=== PATIENT | male | born 1975 | race African-American/Black ===

== ENCOUNTER 2018-02-06 22:48 | Emergency (ER) | payer OTHER ==
[2018-02-06 22:58] VITALS: BP 135/108; PULSE 104; TEMP 98.2; BMI 34.8
--- NOTE | 2018-02-06 23:57 | PDOC ---
History of Present Illness - General History Source: Patient Exam Limitations: No Limitations - History of Present Illness Initial Comments: 02/07/18 00:45 The patient is a 42 year old male with a significant PMH of HTN who presents to the emergency department with lower abdominal pain with associated diarrhea for the past two days. The patient describes the lower abdominal pain as sharp and intermittent. The patient denies exacerbating or alleviating factors. The patient denies having similar symptoms in the past. Patient state he has not had a cholecystoscopy or followed with a cottage attendant in the past. The patient denies chest pain, shortness of breath, headache and dizziness. Denies diaphoresis, fever, chills, nausea, vomit, diarrhea and constipation. Denies dysuria, frequency, urgency and hematuria. Allergies: NKA Past surgical history: None reported. Social history: No reported alcohol, drug, or cigarette use. PCP: Dr. Vigil <Marie Clement - Last Filed: 02/07/18 00:56> <Lurdes Simpson - Last Filed: 02/13/18 02:04> - General Chief Complaint: Pain Stated Complaint: ABDOMINAL PAIN Time Seen by Provider: 02/06/18 23:41 Past History <Marie Clement - Last Filed: 02/07/18 00:56> - Past Medical History COPD: No HTN: Yes - Surgical History Neurologic Surgery: Yes (S5-L2 DISK HERNIATION REPAIR) - Suicide/Smoking/Psychosocial Hx Smoking Status: No Smoking History: Never smoked Have you smoked in the past 12 months: No Number of Cigarettes Smoked Daily: 0 Information on smoking cessation initiated: No Hx Alcohol Use: Yes (social) Drug/Substance Use Hx: Yes Substance Use Type: Alcohol, Marijuana <Lurdes Simpson - Last Filed: 02/13/18 02:04> - Past Medical History Allergies/Adverse Reactions: Allergies Allergy/AdvReac Type Severity Reaction Status Date / Time No Known Allergies Allergy Verified 02/06/18 22:58 Home Medications: Ambulatory Orders Allopurinol [Zyloprim -] 100 mg PO DAILY 11/05/15 Amlodipine Besylate 5 mg PO DAILY 11/05/15 Colchicine [Colcrys -] 0.6 mg PO DAILY 11/05/15 Gabapentin 100 mg PO DAILY 11/05/15 Indomethacin 50 mg PO DAILY 11/05/15 Losartan Potassium 100 mg PO DAILY 11/05/15 Omeprazole 20 mg PO DAILY 11/05/15 Tramadol HCl 50 mg PO DAILY PRN 11/05/15 Acetaminophen [Tylenol .Regular Strength -] 650 mg PO Q6H PRN #0 tablet Albuterol Sulfate Inhaler - [Ventolin HFA Inhaler -] 1 - 2 inh PO Q4H #1 inhaler 11/06/15 Loratadine [Claritin -] 10 mg PO DAILY #30 tablet 11/06/15 Losartan Potassium [Cozaar -] 100 mg PO DAILY tablet 11/06/15 Ibuprofen 800 mg PO TID #30 tablet 02/07/18 levoFLOXacin [Levaquin -] 500 mg PO DAILY #7 tablet 02/07/18 metroNIDAZOLE [Flagyl] 500 mg PO BID #14 tablet 02/07/18 Review of Systems - Review of Systems Able to Perform ROS?: Yes Comments:: 02/07/18 00:42 ADULT ROS GENERAL/CONSTITUTIONAL: No fever or chills. No weakness. HEAD, EYES, EARS, NOSE AND THROAT: No change in vision. No ear pain or discharge. No sore throat. GASTROINTESTINAL: (+) Lower abdomen pain. No nausea, vomiting, diarrhea or constipation. GENITOURINARY: No dysuria, frequency, or change in urination. CARDIOVASCULAR: No chest pain or shortness of breath. RESPIRATORY: No cough, wheezing, or hemoptysis. MUSCULOSKELETAL: No joint or muscle swelling or pain. No neck or back pain. SKIN: No rash NEUROLOGIC: No headache, vertigo, loss of consciousness, or change in strength/ sensation. ENDOCRINE: No increased thirst. No abnormal weight change. HEMATOLOGIC/LYMPHATIC: No anemia, easy bleeding, or history of blood clots. ALLERGIC/IMMUNOLOGIC: No hives or skin allergy. <Marie Clement - Last Filed: 02/07/18 00:56> *Physical Exam - Vital Signs Last Vital Signs Temp Pulse Resp BP Pulse Ox 98.2 F 104 H 18 135/108 100 02/06/18 22:55 02/06/18 22:55 02/06/18 22:55 02/06/18 22:55 02/06/18 22:55 - Physical Exam Comments: 02/07/18 00:41 ADULT PHYSICAL EXAM Constitutional: Awake, alert, oriented. No acute distress. Head: Normocephalic. Atraumatic Eyes: PERRL. EOMI. Conjunctivae are not pale. ENT: Mucous membranes are moist and intact. Posterior pharynx without exudates or erythema. Uvula midline. Neck: Supple. Full ROM. No lymphadenopathy. Cardiovascular: Regular rate. Regular rhythm. S1, S2 regular. Distal pulses are 2+ and symmetric. Pulmonary/Chest: No evidence of respiratory distress. Clear to auscultation bilaterally No wheezing, rales or rhonchi. Abdominal: (+) Obese abdomen. (+) Lower abdomen tenderness. Soft and non- distended. No rebound, guarding or rigidity. No organomegaly. No palpable masses. Good bowel sounds. Back: No CVA tenderness. Musculoskeletal: No edema. No cyanosis. No clubbing. Full range of motion in all extremities. Nocalf tenderness. Radial/pedal pulses are intact and 2+ bilaterally Skin: Skin is warm and dry. No petechiae. No purpura. Neurological: Alert and oriented to person, place, and time. Cranial nerves II -XII are grossly intact. Normal speech. Strength is grossly symmetric. No sensory deficits. Psychiatric: Good eye contact. Normal interaction, affect and behavior. <Marie Clement - Last Filed: 02/07/18 00:56> - Vital Signs Last Vital Signs Temp Pulse Resp BP Pulse Ox 98.2 F 104 H 18 135/108 100 02/06/18 22:55 02/06/18 22:55 02/06/18 22:55 02/06/18 22:55 02/06/18 22:55 <Lurdes Simpson - Last Filed: 02/13/18 02:04> ED Treatment Course - LABORATORY CBC & Chemistry Diagram: 02/07/18 00:17 02/07/18 00:17 - Medications Given in the ED: ED Medications Discontinued Medications Generic Name Dose Route Start Last Admin Trade Name Freq PRN Reason Stop Dose Admin Famotidine/Sodium Chloride 20 mg in 50 mls @ 100 mls/hr 02/06/18 23:59 00:23 Pepcid 20 Mg Premixed Ivpb - IVPB 02/07/18 00:28 100 mls/hr ONCE ONE Administration Morphine Sulfate 4 mg 02/06/18 23:59 02/07/18 00:23 Morphine Injection - IVPUSH 02/07/18 00:00 4 mg ONCE ONE Administration Sodium Chloride 1,000 ml 02/06/18 23:59 02/07/18 00:23 Normal Saline - IV 02/07/18 00:00 1,000 ml ONCE ONE Administration <Marie Clement - Last Filed: 02/07/18 00:56> - LABORATORY CBC & Chemistry Diagram: 02/07/18 00:17 02/07/18 00:17 <Lurdes Simpson - Last Filed: 02/13/18 02:04> Medical Decision Making - Medical Decision Making 02/07/18 00:27 a/p: 42yo male with lower abd pain x 2 days assoc with diarrhea -states sharp shooting intermittent pain x 2 days - LLQ worse than RLQ -assoc with nonbloody diarrhea, but small freq bm -subjective f/c -no n/v -suspect diverticulitis -will check labs, ua, ct abd/pelvis w contrast -ivf hdyration -pain control 02/07/18 01:53 pt with thrombocytopenia on labs L shift in neutrophils tolerated po still with pain - will remedicate for pain 02/07/18 02:[address] pt will be signed out to the oncoming ED physician pending further eval of abd pain <Lurdes Simpson - Last Filed: 02/13/18 02:04> *DC/Admit/Observation/Transfer - Attestations Scribe Attestion: 02/07/18 00:43 Documentation prepared by Marie Clement, acting as medical researcher for Lurdes Simpson DO. <Marie Clement - Last Filed: 02/07/18 00:56> - Attestations Physician Attestion: 02/13/18 02:04 I, Dr. Lurdes Simpson DO, attest that this document has been prepared under my direction and personally reviewed by me in its entirety. I further attest, that it accurately reflects all work, treatment, procedures and medical decision -making performed by me. <Lurdes Simpson - Last Filed: 02/13/18 02:04> Diagnosis at time of Disposition: Colitis Abdominal pain Qualifiers: Abdominal location: generalized Qualified Code(s): R10.84 - Generalized abdominal pain - Discharge Dispostion Disposition: HOME Condition at time of disposition: Stable - Prescriptions Prescriptions: Ibuprofen 800 mg PO TID #30 tablet levoFLOXacin [Levaquin -] 500 mg PO DAILY #7 tablet metroNIDAZOLE [Flagyl] 500 mg PO BID #14 tablet - Referrals Referrals: Hira Pike MD [Staff Physician] - Harshal Vigil MD [Primary Care Provider] - - Patient Instructions Printed Discharge Instructions: DI for Colitis - Post Discharge Activity
[2018-02-06] MEDS ORDERED: FAMOTIDINE 20 MG/50 ML IVPB 20 MG/50 ML MG IVPB ONE (23:59)
[2018-02-06] MEDS ORDERED: SODIUM CHLORIDE 0.9% 1000 ML INFUS.BAG IV ONE (23:59)
[2018-02-06] MEDS ORDERED: morphine CARPU-JECT 4 MG/1 ML DISP.SYRIN IVPUSH ONE (23:59)
[2018-02-07] MEDS ORDERED: morphine SULFATE 4 MG/ML VIAL ONE (00:25)
[2018-02-07] MEDS ORDERED: FAMOTIDINE 20 MG/50 ML IVPB 20 MG/50 ML MG IVPB ONE (00:25)
[2018-02-07 00:46] LABS: BASO % 0.1 % (0-2.0); EOS % 0.1 % (0-4.5); HEMATOCRIT 46.3 % (35.4-49); HEMOGLOBIN 15.5 GM/dL (11.7-16.9); LYMPH % 4.2 % (8-40); MCH 31.9 pg (25.7-33.7); MCHC 33.6 g/dl (32.0-35.9); MEAN PLT VOLUME 9.6 fl (7.5-11.1); NEUT % 90.6 % (42.8-82.8); PLATELET COUNT 42 K/MM3 (134-434); RBC 4.88 M/mm3 (4.00-5.60); RDW 14.8 % (11.9-15.9); WHITE BLOOD COUNT 5.4 K/mm3 (4.0-10.0)
[2018-02-07 01:22] LABS: ALBUMIN 3.1 g/dl (3.4-5.0); ANION GAP 9 (8-16); BLOOD UREA NITROGEN 11 mg/dL (7-18); CALCIUM 8.2 mg/dL (8.5-10.1); CHLORIDE 104 mmol/L (98-107); CO2 25 mmol/L (21-32); CREATININE 1.3 mg/dL (0.7-1.3); GLUCOSE,RANDOM 119 mg/dL (74-106); SGPT/ALT 40 U/L (12-78); SODIUM 138 mmol/L (136-145)
[2018-02-07 01:24] LABS: ALK PHOS 122 U/L (45-117); BILIRUBIN,TOTAL 0.7 mg/dL (0.2-1.0); TOT PROT 7.7 g/dl (6.4-8.2)
[2018-02-07 01:25] LABS: POTASSIUM 3.6 mmol/L (3.5-5.1); SGOT/AST 54 U/L (15-37)
[2018-02-07] MEDS ORDERED: morphine CARPU-JECT 4 MG/1 ML DISP.SYRIN IVPUSH ONE (01:52)
[2018-02-07] MEDS ORDERED: SODIUM CHLORIDE 0.9% 1000 ML INFUS.BAG IV ONE (01:53)
[2018-02-07 02:18] LABS: URINE APPEARANCE CLEAR; URINE BILIRUBIN NEGATIVE (<2.0 mg/dL); URINE COLOR STRAW; URINE GLUCOSE (UA) NEGATIVE (NEGATIVE); URINE KETONE NEGATIVE (NEGATIVE); URINE LEUK ESTERASE NEGATIVE (NEGATIVE); URINE NITRITE NEGATIVE (NEGATIVE); URINE UROBILINOGEN NEGATIVE mg/dL (0.2-1.0)
[2018-02-07 02:23] LABS: URINE PROTEIN 2+ (NEGATIVE)
[2018-02-07 02:29] LABS: EPI CELLS RARE /HPF (FEW); URINE BACTERIA RARE /hpf (NONE SEEN); URINE MUCUS RARE
[2018-02-07] MEDS ORDERED: MORPHINE SULFATE 2 MG/ML VIAL ONE (02:36)
[2018-02-07 02:44] LABS: PLATELET ESTIMATE DECREASED
[2018-02-07] MEDS ORDERED: metroNIDAZOLE 250 MG TABLET PO ONE (05:07)
--- NOTE | 2018-02-07 05:11 | PDOC ---
*Physical Exam - Vital Signs Last Vital Signs Temp Pulse Resp BP Pulse Ox 98.2 F 104 H 18 135/108 100 02/06/18 22:55 02/06/18 22:55 02/06/18 22:55 02/06/18 22:55 02/06/18 22:55 ED Treatment Course - LABORATORY CBC & Chemistry Diagram: 02/07/18 00:17 02/07/18 00:17 - ADDITIONAL ORDERS Additional order review: Laboratory Results 02/07/18 02/07/18 02/07/18 01:54 00:17 00:17 Sodium 138 Potassium 3.6 Chloride 104 Carbon Dioxide 25 Anion Gap 9 BUN 11 Creatinine 1.3 D Creat Clearance w eGFR 59.97 Random Glucose 119 H D Lactic Acid 0.9 Calcium 8.2 L Total Bilirubin 0.7 AST 54 H D ALT 40 D Alkaline Phosphatase 122 H Total Protein 7.7 Albumin 3.1 L Urine Color Straw Urine Appearance Clear Urine pH 5.0 Ur Specific [place] 1.006 Urine Protein 2+ H Urine Glucose (UA) Negative Urine Ketones Negative Urine Blood 1+ H Urine Nitrite Negative Urine Bilirubin Negative Urine Urobilinogen Negative Ur Leukocyte Esterase Negative Urine WBC (Auto) <1 Urine RBC (Auto) <1 Ur Epithelial Cells Rare Urine Bacteria Rare Urine Mucus Rare 02/07/18 00:17 RBC 4.88 MCV 95.0 MCHC 33.6 RDW 14.8 MPV 9.6 Neutrophils % 90.6 H Lymphocytes % 4.2 L D Monocytes % 5.0 Eosinophils % 0.1 D Basophils % 0.1 - Medications Given in the ED: ED Medications Discontinued Medications Generic Name Dose Route Start Last Admin Trade Name Jillian PRN Reason Stop Dose Admin Famotidine/Sodium Chloride 20 mg in 50 mls @ 100 mls/hr 02/06/18 23:59 00:23 Pepcid 20 Mg Premixed Ivpb - IVPB 02/07/18 00:28 100 mls/hr ONCE ONE Administration Morphine Sulfate 4 mg 02/06/18 23:59 02/07/18 00:23 Morphine Injection - IVPUSH 02/07/18 00:00 4 mg ONCE ONE Administration Morphine Sulfate 6 mg 02/07/18 01:52 02/07/18 02:45 Morphine Injection - IVPUSH 02/07/18 01:53 6 mg ONCE ONE Administration Sodium Chloride 1,000 ml 02/06/18 23:59 02/07/18 00:23 Normal Saline - IV 02/07/18 00:00 1,000 ml ONCE ONE Administration Sodium Chloride 1,000 ml 02/07/18 01:53 02/07/18 02:45 Normal Saline - IV 02/07/18 01:54 1,000 ml ONCE ONE Administration Medical Decision Making - Medical Decision Making 02/07/18 05:09 Pt found to have a colitis on CT scan, Pt will be discharged. Rx Levaquin 500mg PO Qd, Flagyl 500mg PO bid for seven days. Follow up with GI *DC/Admit/Observation/Transfer Diagnosis at time of Disposition: Colitis Abdominal pain Qualifiers: Abdominal location: generalized Qualified Code(s): R10.84 - Generalized abdominal pain - Discharge Dispostion Disposition: HOME Condition at time of disposition: Stable Decision to Admit order: No - Prescriptions Prescriptions: Ibuprofen 800 mg PO TID #30 tablet levoFLOXacin [Levaquin -] 500 mg PO DAILY #7 tablet metroNIDAZOLE [Flagyl] 500 mg PO BID #14 tablet - Referrals Referrals: Harshal Vigil MD [Primary Care Provider] - Hira Pike MD [Staff Physician] - - Patient Instructions Printed Discharge Instructions: DI for Colitis - Post Discharge Activity
[2018-02-07] MEDS ORDERED: metroNIDAZOLE 250 MG TABLET ONE (05:22)
== END 2018-02-07 05:37 | disposition home or self-care (01) ==
LOC: JER 22:48
PROC: 3E033GC Introduction of Other Therapeutic Substance into Peripheral Vein, Percutaneous Approach (ICD-10-PCS; principal; 2018-02-06)
PROC: 3E033NZ Introduction of Analgesics, Hypnotics, Sedatives into Peripheral Vein, Percutaneous Approach (ICD-10-PCS; 2018-02-06)
PROC: 3E033NZ Introduction of Analgesics, Hypnotics, Sedatives into Peripheral Vein, Percutaneous Approach (ICD-10-PCS; 2018-02-06)
DX: K52.9 Noninfective gastroenteritis and colitis, unspecified (principal); I10 Essential (primary) hypertension
CPT/HCPCS: 36415; 74177-TC; 80053; 81003; 81015; 83605; 85025; 99281-25; J7030

== ENCOUNTER 2019-08-14 15:34 | Inpatient (IN) | payer OTHER ==
[2019-08-14] MEDS ORDERED: BENZOIN/ALOE VERA/STORAX/TOLU 58 ML BOTTLE ONE (15:45)
--- NOTE | 2019-08-14 16:03 | PDOC ---
Attending Attestation - Resident Resident Name: Leana Burger - ED Attending Attestation I have performed the following: I have examined & evaluated the patient, The case was reviewed & discussed with the resident, I agree w/resident's findings & plan, Exceptions are as noted - HPI HPI: 08/14/19 15:58 44y M hx of htn presents with complaint of 'not being able to get it together' patient states that he was in his usual state of health and was speaking with his over the phone when he started not feeling well -he said he felt lightheaded and that "he could not get together", denies any associated chest pain, shortness of breath, nausea, vomiting, abdominal pain, back pain, headache , vertigo, vision changes, focal numbness, weakness or tingling, diarrhea, blood per rectum, dysuria. Upon arrival the patient was noted to be tachycardic and diaphoretic in triage. Patient was immediately brought to bed 10 where he was evaluated he was significantly diaphoretic and keeps on saying that he cannot get in together however denies any other focal complaints. He denies any recent recreational drug use. Pt does endorses drinking 5-6 beers every night but denies any signs sugestive of withdrwal tavelled to [place] approx 2-3 weeks ago Allergies: NKA Past surgical history: None reported. Social history: No reported alcohol, drug, or cigarette use. PCP: Dr. Vigil PMD: Rocio Vigil GENERAL: The patient is awake, alert, and fully oriented, diaphoretic HEAD: Normocephalic, atraumatic. EYES: extraocular movements intact, sclera anicteric, conjunctiva clear. ENT: Normal voice, Moist mucous membranes. NECK: Normal range of motion, supple LUNGS: Breath sounds equal, clear to auscultation bilaterally. No wheezes, no rhonchi, no rales. HEART: Tachycardic, regular, normal S1 and S2 without murmur, rub or gallop. ABDOMEN: Soft, nontender, No guarding, no rebound. No CVA tenderness EXTREMITIES: Normal range of motion, no edema. NEUROLOGICAL: No facial assymetry, Normal speech, PSYCH: Normal mood, normal affect. SKIN: Warm, Dry, normal turgor, Differential for the patient's symptoms includes anemia, metabolic derangements , ACS After approximately 10 minutes his diaphoresis improved after he laid down. He did note that he had poor appetite today so did not eat or drink anything all day. Immediate EKG and blood work was obtained upon arrival. No signs of an STEMI on his EKG. We will give the patient fluids The patient was placed on commuter pilot consider PE - will send dimer - Physicial Exam PE: 08/14/19 18:09 see above - Critical Care Time Total Critical Care Time: 35 Critical Care Statement: The care of this patient involved high complexity decision making to prevent further life threatening deterioration of the patient 's condition and/or to evaluate & treat vital organ system(s) failure or risk of failure. - Medical Decision Making 08/14/19 18:07 pts labs reviewed noted for lactic acid of 6 - cbc suggests hemoconcentration - will continue to hydrate/fluid resusitate pt given .5 ativan when symtoms recurred - ?etoh withdrawal? however wouldnot expect this to be so episodic. repeat ekg performed during recurrent epsidoe was unchanged. pts trop 0.06 and ddimer elevatedt 1100 - will obtain CTA to ro PE anticpate dadmission for further management Heart Score/ECG Review - ECG Impressions Comment:: 08/14/19 16:02 Twelve-lead EKG was performed and reviewed by me. There is normal sinus rhythm with a rate of 113
--- NOTE | 2019-08-14 16:16 | PDOC ---
History of Present Illness - General Chief Complaint: Respiratory Stated Complaint: CHEST PAIN/ COLD SWEATS Time Seen by Provider: 08/14/19 15:48 History Source: Patient Exam Limitations: No Limitations - History of Present Illness Initial Comments: 44-year-old male with past medical history of hypertension, noncompliance with medication presented to the emergency department for an abnormal feeling occurring just prior to arrival to the emergency department. Patient reported that he was on the phone with his she said that he sounded out of breath, advised him to go outside and get fresh air, when he went outside he reported that he felt much worse, he was unable to pinpoint his exact feeling but he did feel like he was gasping for air. Patient reported he became very diaphoretic and felt like something was wrong, prompting him to come to the ED. Patient denied chest pain, headache, abdominal pain, back pain, lightheadedness, syncope , recent illnesses. Patient reported he last drink alcohol yesterday, but has gone days before without drinking and has not had any reaction. He denies history of seizures or delirium tremens with ETOH cessation in the past. He reported that his mother is ill and he has been traveling [id number] to [place] frequently of the last few weeks, last traveled around two weeks ago. He reported the flights are about an hour long. He denied leg swelling, calf pain, history of DVT or PE, hemoptysis, recent surgery, or recent active malignancy. Social ETOH - 6 beers a night, Gin sometimes Drugs - admitted to daily marijuana use, denied other drugs Nicotine - admitted to 1PPD ROS General: denied fever, chills, generalized weakness. HEENT: denied sore throat, rhinorrhea, ear pain. Cardiovascular: admitted diaphoresis. denied chest pain, palpitations, syncope. Respiratory: admitted shortness of breath. denied cough, sputum production, hemoptysis. Gastrointestinal: denied abdominal pain, nausea, vomiting, diarrhea, constipation, blood in stool. Genitourinary: denied dysuria, increased urinary frequency, hematuria, urinary incontinence, flank pain. Back: denied back pain. Musculoskeletal: denied joint pain, muscle pain, joint swelling. Neurological: denied headache, dizziness, numbness, tingling, weakness. Integumentary: denied rash, laceration, abrasion. Hematologic/Lymphatic: denied bruising or bleeding. PE Constitutional: Well-nourished, Well-developed, appearing stated age. diaphoretic. HEENT: head is normocephalic, atraumatic. EOMI. PERRLA. Neck: supple. Full ROM. Cardiovascular: regular heart rhythm. no murmurs. no pericardial friction rub. Respiratory: clear to auscultation bilaterally. no crackles, rhonchi or wheezing. no stridor. Gastrointestinal: soft, nontender. normal bowel sounds. no rebound, guarding, masses. Extremities: peripheral pulses intact. no lower extremity edema. no calf tenderness bilaterally. Neurological: CN 2-12 grossly intact. moves all four extremities. Psych: awake, alert, oriented x3. follows commands. answers questions appropriately. Past History - Past Medical History Allergies/Adverse Reactions: Allergies Allergy/AdvReac Type Severity Reaction Status Date / Time No Known Allergies Allergy Verified 08/14/19 15:40 Home Medications: Ambulatory Orders Allopurinol [Zyloprim -] 100 mg PO DAILY 11/05/15 Colchicine [Colcrys] 0.6 mg PO DAILY 11/05/15 Gabapentin 100 mg PO DAILY 11/05/15 Omeprazole 20 mg PO DAILY 11/05/15 Losartan Potassium [Cozaar -] 100 mg PO DAILY tablet 11/06/15 Atenolol [Tenormin -] 25 mg PO BID 08/14/19 - Surgical History Neurologic Surgery: Yes (S5-L2 DISK HERNIATION REPAIR) - Psycho Social/Smoking Cessation Hx Smoking Status: No Smoking History: Unknown if ever smoked Have you smoked in the past 12 months: No Number of Cigarettes Smoked Daily: 0 Hx Alcohol Use: Yes (social) Drug/Substance Use Hx: Yes Substance Use Type: Alcohol, Marijuana *Physical Exam - Vital Signs Last Vital Signs Temp Pulse Resp BP Pulse Ox 121 H 28 H 185/125 H 99 08/14/19 15:39 08/14/19 15:39 08/14/19 15:39 08/14/19 15:39 Vital Signs - Vital Signs #1 Time: 16:16 Blood Pressure: 127/70 BP Location: Right Arm Blood Pressure Position: Sitting Pulse Rate: 105 Respiratory Rate: 20 O2 Sat by Pulse Oximetry (%): 100 Oxygen Delivery Method: Room Air ED Treatment Course - LABORATORY CBC & Chemistry Diagram: 08/15/19 05:25 08/15/19 05:25 - ADDITIONAL ORDERS Additional order review: Laboratory Results 08/14/19 15:42 POC Glucometer 95 08/14/19 15:42 POC Glucometer 95 - RADIOLOGY Radiology Studies Ordered: Category Date Time Status CHEST X-RAY PORTABLE* [RAD] Stat Radiology 08/14/19 15:56 Ordered Medical Decision Making - Medical Decision Making 44 year old male with above PMH presented to ED for episode of diaphoresis and shortness of breath. Initial Vital Signs Pulse Resp BP Pulse Ox 121 H 28 H 185/125 H 99 08/14/19 15:39 08/14/19 15:39 08/14/19 15:39 08/14/19 15:39 Tachycardic. Tachypneic. Hypertensive. No hypoxia on room air. Vital Signs Pulse Rate 105 H 08/14/19 16:17 Respiratory Rate 20 08/14/19 16:17 Blood Pressure 127/70 08/14/19 16:17 O2 Sat by Pulse Oximetry (%) 100 08/14/19 16:17 Hypertension improved without medical management. Tachycardia still present but improved. EKG performed at 1550: rate 113, regular rhythm, normal axis, normal intervals, QTc 491, no acute ST changes. 08/14/19 16:46 After symptoms improved pt had another episode of "not feeling well" and diaphoresis. Repeat EKG performed at 1644: rate 100, regular rhythm, normal axis, normal intervals, QTc 487, no acute ST changes. 08/14/19 17:00 Laboratory Last Values POC Glucometer 95 UNITS (80-120) 08/14/19 15:42 Lactic Acid 6.1 mmol/L (0.4-2.0) H* 08/14/19 15:40 Creatine Kinase 260 U/L (26-308) 08/14/19 15:40 Troponin I 0.06 ng/ml (0.00-0.05) H 08/14/19 15:40 Opiates Screen Negative ng/ml (NOADOO=377) 08/14/19 16:15 Methadone Screen Negative ng/ml (WIBBXK=852) 08/14/19 16:15 Barbiturate Screen Negative ng/ml (ZGTMHZ=709) 08/14/19 16:15 Phencyclidine Screen Negative ng/ml (CUTOFF=25) 08/14/19 16:15 Ur Amphetamines Screen Negative ng/ml (ZCOPLZ=657) 08/14/19 16:15 MDMA (Ecstasy) Screen Negative ng/ml (CDVPMH=844) 08/14/19 16:15 Benzodiazepines Screen Negative ng/ml (VEZEFF=196) 08/14/19 16:15 Cocaine Screen Negative ng/ml (LCTIXC=814) 08/14/19 16:15 U Marijuana (THC) Screen Positive ng/ml (CUTOFF=50) A* 08/14/19 16:15 08/14/19 18:05 Laboratory Last Values WBC 5.7 K/mm3 (4.0-10.0) 08/14/19 15:40 RBC 5.18 M/mm3 (4.00-5.60) 08/14/19 15:40 Hgb 17.2 GM/dL (11.7-16.9) H 08/14/19 15:40 Hct 50.4 % (35.4-49) H 08/14/19 15:40 MCV 97.3 fl (80-96) H 08/14/19 15:40 MCH 33.2 pg (25.7-33.7) 08/14/19 15:40 MCHC 34.1 g/dl (32.0-35.9) 08/14/19 15:40 RDW 16.2 % (11.9-15.9) H 08/14/19 15:40 Plt Count 117 K/MM3 (134-434) L D 08/14/19 15:40 MPV 11.7 fl (7.5-11.1) H D 08/14/19 15:40 Absolute Neuts (auto) 3.6 K/mm3 (1.5-8.0) 08/14/19 15:40 Neutrophils % 63.2 % (42.8-82.8) D 08/14/19 15:40 Lymphocytes % 25.2 % (8-40) D 08/14/19 15:40 Monocytes % 10.6 % (3.8-10.2) H D 08/14/19 15:40 Eosinophils % 0.3 % (0-4.5) D 08/14/19 15:40 Basophils % 0.7 % (0-2.0) D 08/14/19 15:40 Nucleated RBC % 0 % (0-0) 08/14/19 15:40 PT with INR 11.30 SEC (9.7-13.0) 08/14/19 15:40 INR 0.96 (0.83-1.09) 08/14/19 15:40 D-Dimer 1135 ng/ml (0-500) H 08/14/19 15:40 Sodium 141 mmol/L (136-145) 08/14/19 15:40 Potassium 3.3 mmol/L (3.5-5.1) L 08/14/19 15:40 Chloride 106 mmol/L (98-107) 08/14/19 15:40 Carbon Dioxide 21 mmol/L (21-32) 08/14/19 15:40 Anion Gap 14 MMOL/L (8-16) 08/14/19 15:40 BUN 10.6 mg/dL (7-18) 08/14/19 15:40 Creatinine 1.4 mg/dL (0.55-1.3) H 08/14/19 15:40 Est GFR (CKD-EPI)AfAm 69.34 08/14/19 15:40 Est GFR (CKD-EPI)NonAf 59.83 08/14/19 15:40 POC Glucometer 95 UNITS (80-120) 08/14/19 15:42 Random Glucose 85 mg/dL (74-106) 08/14/19 15:40 Lactic Acid 6.1 mmol/L (0.4-2.0) H* 08/14/19 15:40 Calcium 8.9 mg/dL (8.5-10.1) 08/14/19 15:40 Magnesium 1.5 mg/dL (1.8-2.4) L 08/14/19 15:40 Total Bilirubin 0.6 mg/dL (0.2-1) 08/14/19 15:40 AST 112 U/L (15-37) H 08/14/19 15:40 ALT 69 U/L (13-61) H 08/14/19 15:40 Alkaline Phosphatase 173 U/L (45-117) H 08/14/19 15:40 Creatine Kinase 260 U/L (26-308) 08/14/19 15:40 Creatine Kinase Index 0.8 % (0.0-5.0) 08/14/19 15:40 CK-MB (CK-2) 2.1 ng/mL (0.5-3.6) 08/14/19 15:40 Troponin I 0.06 ng/ml (0.00-0.05) H 08/14/19 15:40 Total Protein 8.7 g/dl (6.4-8.2) H 08/14/19 15:40 Albumin 3.5 g/dl (3.4-5.0) 08/14/19 15:40 TSH 0.45 uIU/ml (0.358-3.74) D 08/14/19 15:40 Free T4 0.77 ng/dl (0.76-1.16) 08/14/19 15:40 Urine Color Yellow 08/14/19 16:15 Urine Appearance Clear 08/14/19 16:15 Urine pH 5.5 (5.0-8.0) 08/14/19 16:15 Ur Specific [place] 1.015 (1.010-1.035) 08/14/19 16:15 Urine Protein 3+ (NEGATIVE) H 08/14/19 16:15 Urine Glucose (UA) Negative (NEGATIVE) 08/14/19 16:15 Urine Ketones Negative (NEGATIVE) 08/14/19 16:15 Urine Blood 1+ (NEGATIVE) H 08/14/19 16:15 Urine Nitrite Negative (NEGATIVE) 08/14/19 16:15 Urine Bilirubin Negative (NEGATIVE) 08/14/19 16:15 Urine Urobilinogen 0.2 mg/dL (0.2-1.0) 08/14/19 16:15 Ur Leukocyte Esterase Negative (NEGATIVE) 08/14/19 16:15 Urine WBC (Auto) 2 /hpf (0-5) 08/14/19 16:15 Urine RBC (Auto) 3 /hpf (0-4) 08/14/19 16:15 Urine Casts (Auto) 6 /lpf (0-8) 08/14/19 16:15 U Epithel Cells (Auto) 2.1 /HPF (0-5/HPF) 08/14/19 16:15 Urine Bacteria (Auto) 21.5 /hpf (NEGATIVE) 08/14/19 16:15 Alcohol, Quantitative 35.8 mg/dL (0.0-5.0) H 08/14/19 15:40 Blood Type B POSITIVE 08/14/19 15:40 Antibody Screen Negative 08/14/19 15:40 Risks benefits of IV contrast induced nephropathy vs undiagnosed PE discussed with patient. I believe at this time it is crucial to rule out PE in this patient, he agreed and gave verbal and written consent. -Last Cr 1.3 08/14/19 18:16 Vital Signs Pulse Rate 105 H 08/14/19 18:08 Respiratory Rate 20 08/14/19 18:08 Blood Pressure 127/70 08/14/19 18:08 O2 Sat by Pulse Oximetry (%) 100 08/14/19 18:08 Pt reported improvement of symptoms after Ativan 0.5 mg IV once 08/14/19 18:37 Repeat troponin and lactate drawn and sent by fl. 08/14/19 18:43 CTA report: Name: [facility] Phys: Leana Burger RESIDENT : 1975 Age: 44 Sex: M [facility] Acct: [id number] Loc: [address] Exam Date: 08/14/19 Status: [place] [address] Unit Number: [id number] EXAM#: TYPE/EXAM: RESULT: [id number] CT/CHEST CTA Chest CT angiography Clinical information diaphoretic, dyspnea, right for pulmonary embolism Multiplanar imaging was performed following the intravenous administration of nonionic contrast. No central pulmonary embolus is identified. Evaluation of the peripheral vasculature is somewhat limited due to contrast timing. No obvious peripheral embolus is noted. There is no evidence of pneumothorax, pneumomediastinum, infiltrate or pleural effusion. No definite cardiac enlargement is seen. There is no pericardial effusion. No aortic aneurysm is noted. There is no discrete lymphadenopathy. The trachea and central bronchi demonstrate no obvious pathology. The visualized osseous structures demonstrate no obvious acute abnormality. Impression: No CT evidence of central pulmonary embolism. There is no obvious peripheral embolus allowing for somewhat limited contrast opacification. Correlation with bilateral lower extremity venous sonography is suggested (versus follow-up CT angiography). Reported By: Angelito Menendez MD 08/14/19 1829 08/14/19 18:57 Vital Signs Pulse Rate 105 H 08/14/19 18:56 Respiratory Rate 20 08/14/19 18:56 Blood Pressure 127/70 08/14/19 18:56 O2 Sat by Pulse Oximetry (%) 100 08/14/19 18:56 Pt reported no recurrence of symptoms, is hungry requesting food. No large central PE, possible peripheral PE missed 2/2 contrast mistiming. Will not give anticoagulation at this time. Symptoms may be 2/2 ETOH withdrawal, but cannot say for sure, would not explain lactic acidosis. Give initial presentation, will admit for cardiology eval and further workup. Signout given to Dr. Lynne, IM Resident. Discharge - Discharge Information Problems reviewed: Yes Clinical Impression/Diagnosis: Lactic acidosis, Elevated troponin, Shortness of breath - Follow up/Referral - Patient Discharge Instructions - Post Discharge Activity
[2019-08-14 16:49] LABS: COCAINE, UR NEGATIVE ng/ml (CUTOFF=300); METHADONE, UR NEGATIVE ng/ml (CUTOFF=300); OPIATES, URI NEGATIVE ng/ml (CUTOFF=300); PHENCYCLIDINE,URINE NEGATIVE ng/ml (CUTOFF=25); URINE AMPHETAMINES NEGATIVE ng/ml (CUTOFF=500); URINE BARBITURATES NEGATIVE ng/ml (CUTOFF=200); URINE BENZODIAZEPINES NEGATIVE ng/ml (CUTOFF=200)
[2019-08-14] MEDS ORDERED: SODIUM CHLORIDE 1,000 ML IV STA (17:00)
[2019-08-14 17:06] LABS: ALBUMIN 3.5 g/dl (3.4-5.0); BILIRUBIN,TOTAL 0.6 mg/dL (0.2-1); BLOOD UREA NITROGEN 10.6 mg/dL (7-18); CALCIUM 8.9 mg/dL (8.5-10.1); CREATININE 1.4 mg/dL (0.55-1.3); MAGNESIUM 1.5 mg/dL (1.8-2.4); POTASSIUM 3.3 mmol/L (3.5-5.1); TOT PROT 8.7 g/dl (6.4-8.2)
[2019-08-14] MEDS ORDERED: LORazepam 2 MG/ML SDV VIAL ONE (17:07)
[2019-08-14 17:52] LABS: BASO % 0.7 % (0-2.0); EOS % 0.3 % (0-4.5); HEMATOCRIT 50.4 % (35.4-49); HEMOGLOBIN 17.2 GM/dL (11.7-16.9); LYMPH % 25.2 % (8-40); MCH 33.2 pg (25.7-33.7); MCHC 34.1 g/dl (32.0-35.9); MEAN CELL VOLUME 97.3 fl (80-96); MEAN PLT VOLUME 11.7 fl (7.5-11.1); MONO % 10.6 % (3.8-10.2); NEUT % 63.2 % (42.8-82.8); PLATELET COUNT 117 K/MM3 (134-434); RBC 5.18 M/mm3 (4.00-5.60); RDW 16.2 % (11.9-15.9); WHITE BLOOD COUNT 5.7 K/mm3 (4.0-10.0)
[2019-08-14 17:54] LABS: EPI CELLS 2.1 /HPF (0-5/HPF); HYALINE CASTS 6 /lpf (0-8); PH,URINE 5.5 (5.0-8.0); URINE APPEARANCE CLEAR; URINE BACTERIA 21.5 /hpf (NEGATIVE); URINE BILIRUBIN NEGATIVE (NEGATIVE); URINE COLOR YELLOW; URINE GLUCOSE (UA) NEGATIVE (NEGATIVE); URINE KETONE NEGATIVE (NEGATIVE); URINE LEUK ESTERASE NEGATIVE (NEGATIVE); URINE NITRITE NEGATIVE (NEGATIVE); URINE PROTEIN 3+ (NEGATIVE); URINE RBC 3 /hpf (0-4); URINE UROBILINOGEN 0.2 mg/dL (0.2-1.0); URINE WBC 2 /hpf (0-5)
[2019-08-14 18:03] LABS: INR 0.96 (0.83-1.09); PROTHROMBIN TIME (PATIENT) 11.3 SEC (9.7-13.0)
[2019-08-14 18:06] LABS: ACTIVATED PTT 36.7 SECONDS (25.2-36.5)
[2019-08-14] MEDS ORDERED: ASPIRIN 81 MG CHEWABLE TABLETS PO ONE (18:50)
[2019-08-14] MEDS ORDERED: ASPIRIN 81 MG CHEWABLE TABLETS ONE (18:56)
[2019-08-14 19:10] LABS: PLATELET ESTIMATE SLT DECREASE
[2019-08-14] MEDS ORDERED: MAGNESIUM SULF 50% (8.12 MEQ/2 ML-1 GM VIAL) IVPB ONE ×2 (19:56→21:38)
[2019-08-14] MEDS ORDERED: MAGNESIUM SULF 50% (8.12 MEQ/2 ML-1 GM VIAL) ONE (20:34)
[2019-08-14] MEDS ORDERED: MAGNESIUM 1GM/D5W - 1 GM/100 ML IVPB IVPB ONE (20:34)
--- NOTE | 2019-08-14 20:36 | PN ---
Teaching Attending Note Name of Resident: Belinda Lynne ATTENDING PHYSICIAN STATEMENT I saw and evaluated the patient. I reviewed the resident's note and discussed the case with the resident. I agree with the resident's findings and plan as documented. SUBJECTIVE: This is a 44 year old man with a history of HTN, non-compliance who comes to the ED because he was not feeling like himself. This morning he felt well. He says that around 1:30 pm while speaking with his on the phone, she said he wasn't speaking like his usual self. He went outside and became hot and sweaty. He also felt short of breath and nauseous, and he vomited once. He says that he did not eat or drink much during the day - he only recalls drinking one probiotic drink all day. OBJECTIVE: Vital Signs Period Temp Pulse Resp BP Sys/Barreto Pulse Ox Last 24 Hr 98 F 89-121 20-28 127-185/70-125 97-100 HEART: S1S2, tachycardic LUNGS: Clear ABDOMEN: Obese, soft, non-tender, non-distended, normal BS EXTREMITIES: No edema Laboratory Tests 08/14/19 08/14/19 08/14/19 15:40 15:40 15:40 WBC 5.7 RBC 5.18 Hgb 17.2 H Hct 50.4 H MCV 97.3 H MCH 33.2 MCHC 34.1 RDW 16.2 H Plt Count 117 L D MPV 11.7 H D Absolute Neuts (auto) 3.6 Neutrophils % 63.2 D Lymphocytes % 25.2 D Monocytes % 10.6 H D Eosinophils % 0.3 D Basophils % 0.7 D Nucleated RBC % 0 Platelet Estimate Slt decrease Platelet Comment Giant platelets PT with INR 11.30 INR 0.96 PTT (Actin FS) 36.7 H D-Dimer Sodium Potassium Chloride Carbon Dioxide Anion Gap BUN Creatinine Est GFR (CKD-EPI)AfAm Est GFR (CKD-EPI)NonAf POC Glucometer Random Glucose Lactic Acid Calcium Magnesium Total Bilirubin AST ALT Alkaline Phosphatase Creatine Kinase 260 Creatine Kinase Index 0.8 CK-MB (CK-2) 2.1 Troponin I 0.06 H Total Protein Albumin TSH Free T4 Urine Color Urine Appearance Urine pH Ur Specific [place] Urine Protein Urine Glucose (UA) Urine Ketones Urine Blood Urine Nitrite Urine Bilirubin Urine Urobilinogen Ur Leukocyte Esterase Urine WBC (Auto) Urine RBC (Auto) Urine Casts (Auto) U Epithel Cells (Auto) Urine Bacteria (Auto) Opiates Screen Methadone Screen Barbiturate Screen Phencyclidine Screen Ur Amphetamines Screen MDMA (Ecstasy) Screen Benzodiazepines Screen Cocaine Screen U Marijuana (THC) Screen Alcohol, Quantitative Blood Type Antibody Screen 08/14/19 08/14/19 08/14/19 15:40 15:40 15:40 WBC RBC Hgb Hct MCV MCH MCHC RDW Plt Count MPV Absolute Neuts (auto) Neutrophils % Lymphocytes % Monocytes % Eosinophils % Basophils % Nucleated RBC % Platelet Estimate Platelet Comment PT with INR INR PTT (Actin FS) D-Dimer Sodium 141 Potassium 3.3 L Chloride 106 Carbon Dioxide 21 Anion Gap 14 BUN 10.6 Creatinine 1.4 H Est GFR (CKD-EPI)AfAm 69.34 Est GFR (CKD-EPI)NonAf 59.83 POC Glucometer Random Glucose 85 Lactic Acid 6.1 H* Calcium 8.9 Magnesium 1.5 L Total Bilirubin 0.6 AST 112 H ALT 69 H Alkaline Phosphatase 173 H Creatine Kinase Creatine Kinase Index CK-MB (CK-2) Troponin I Total Protein 8.7 H Albumin 3.5 TSH 0.45 D Free T4 0.77 Urine Color Urine Appearance Urine pH Ur Specific [place] Urine Protein Urine Glucose (UA) Urine Ketones Urine Blood Urine Nitrite Urine Bilirubin Urine Urobilinogen Ur Leukocyte Esterase Urine WBC (Auto) Urine RBC (Auto) Urine Casts (Auto) U Epithel Cells (Auto) Urine Bacteria (Auto) Opiates Screen Methadone Screen Barbiturate Screen Phencyclidine Screen Ur Amphetamines Screen MDMA (Ecstasy) Screen Benzodiazepines Screen Cocaine Screen U Marijuana (THC) Screen Alcohol, Quantitative 35.8 H Blood Type B POSITIVE Antibody Screen Negative 08/14/19 08/14/19 08/14/19 15:40 15:42 16:15 WBC RBC Hgb Hct MCV MCH MCHC RDW Plt Count MPV Absolute Neuts (auto) Neutrophils % Lymphocytes % Monocytes % Eosinophils % Basophils % Nucleated RBC % Platelet Estimate Platelet Comment PT with INR INR PTT (Actin FS) D-Dimer 1135 H Sodium Potassium Chloride Carbon Dioxide Anion Gap BUN Creatinine Est GFR (CKD-EPI)AfAm Est GFR (CKD-EPI)NonAf POC Glucometer 95 Random Glucose Lactic Acid Calcium Magnesium Total Bilirubin AST ALT Alkaline Phosphatase Creatine Kinase Creatine Kinase Index CK-MB (CK-2) Troponin I Total Protein Albumin TSH Free T4 Urine Color Urine Appearance Urine pH Ur Specific [place] Urine Protein Urine Glucose (UA) Urine Ketones Urine Blood Urine Nitrite Urine Bilirubin Urine Urobilinogen Ur Leukocyte Esterase Urine WBC (Auto) Urine RBC (Auto) Urine Casts (Auto) U Epithel Cells (Auto) Urine Bacteria (Auto) Opiates Screen Negative Methadone Screen Negative Barbiturate Screen Negative Phencyclidine Screen Negative Ur Amphetamines Screen Negative MDMA (Ecstasy) Screen Negative Benzodiazepines Screen Negative Cocaine Screen Negative U Marijuana (THC) Screen Positive A* Alcohol, Quantitative Blood Type Antibody Screen 08/14/19 08/14/19 08/14/19 16:15 18:33 18:33 WBC RBC Hgb Hct MCV MCH MCHC RDW Plt Count MPV Absolute Neuts (auto) Neutrophils % Lymphocytes % Monocytes % Eosinophils % Basophils % Nucleated RBC % Platelet Estimate Platelet Comment PT with INR INR PTT (Actin FS) D-Dimer Sodium Potassium Chloride Carbon Dioxide Anion Gap BUN Creatinine Est GFR (CKD-EPI)AfAm Est GFR (CKD-EPI)NonAf POC Glucometer Random Glucose Lactic Acid 2.0 Calcium Magnesium Total Bilirubin AST ALT Alkaline Phosphatase Creatine Kinase Creatine Kinase Index CK-MB (CK-2) Troponin I 0.06 H Total Protein Albumin TSH Free T4 Urine Color Yellow Urine Appearance Clear Urine pH 5.5 Ur Specific [place] 1.015 Urine Protein 3+ H Urine Glucose (UA) Negative Urine Ketones Negative Urine Blood 1+ H Urine Nitrite Negative Urine Bilirubin Negative Urine Urobilinogen 0.2 Ur Leukocyte Esterase Negative Urine WBC (Auto) 2 Urine RBC (Auto) 3 Urine Casts (Auto) 6 U Epithel Cells (Auto) 2.1 Urine Bacteria (Auto) 21.5 Opiates Screen Methadone Screen Barbiturate Screen Phencyclidine Screen Ur Amphetamines Screen MDMA (Ecstasy) Screen Benzodiazepines Screen Cocaine Screen U Marijuana (THC) Screen Alcohol, Quantitative Blood Type Antibody Screen Home Medications Medication Instructions Recorded Allopurinol [Zyloprim -] 100 mg PO DAILY 11/05/15 Colchicine [Colcrys] 0.6 mg PO DAILY 11/05/15 Gabapentin 100 mg PO DAILY 11/05/15 Omeprazole 20 mg PO DAILY 11/05/15 Losartan Potassium [Cozaar -] 100 mg PO DAILY tablet 11/06/15 Atenolol [Tenormin -] 25 mg PO BID 08/14/19 ASSESSMENT AND PLAN: This is a 44 year old man with a history of HTN and non-compliance who presented to the ED with SOB, sweats, and not feeling like himself. 1. Possible hypertensive encephalopathy, metabolic encephalopathy secondary to dehydration, hypoglycemia - Patient feels that he is back to his baseline - BP control - Check head CT - Given IV fluid x 1 liter in ED - will be cautious with IV fluid because of uncontrolled HTN 2. Hypertensive emergency with encephalopathy and possible MEREDITH - Will give Labetalol - Check echocardiogram - Patient was on losartan, valsartan, amlodipine, and atenolol in past but currently not taking any - Start lisinopril - Discussed importance of compliance with medications, follow-up 3. HTN, uncontrolled 4. Hypokalemia - Replete potassium 5. Hypomagnesemia - Supplement magnesium 6. Lactic acidosis - Likely secondary to alcohol abuse, dehydration - No evidence of infection - Improved with 1 liter of IV fluid 7. Alcohol intoxication, continuous alcohol dependence - Discussed abstinence from alcohol - Monitor for signs of withdrawal 8. Possible MEREDITH vs CKD secondary to uncontrolled HTN - Repeat creatinine after IV fluid and BP better controlled - Check renal US 9. Hepatic transaminitis - Likely secondary to alcohol abuse - Monitor LFTs - RUQ US 10. Elevated D-dimer - Likely secondary to obesity, dehydration - CTA chest negative for PE 11. Elevated troponin - Possible demand ischemia - Monitor on telemetry - Serial troponins - Check echocardiogram 12. Obesity with BMI 32.1 - Counseled about diet, exercise, weight loss
[2019-08-14] MEDS ORDERED: LABETALOL HCL 5 MG/1 ML (100MG/20 ML VIAL) IVPUSH ONE (21:19)
--- NOTE | 2019-08-14 21:24 | HP ---
CHIEF COMPLAINT: "Not feeling like myself" PCP: Dr. Vigil HISTORY OF PRESENT ILLNESS: 44 y/o M with PMHx of HTN (Noncompliant with medications or with PCP follow up) presents after "Not feeling like myself." Patient woke in his usual state of health this AM; He did not eat anything throughout the day but went about his usual ADL's. He drank one probiotic juice the entire day (he drinks this juice regularly) and at approx 1430 while on the phone with his , she noticed he "wasnt speaking like his usual self." He then walked outside and felt extremely hot with profuse sweating and felt "Not like myself" prompting him to board a public bus and come to [facility]. He additionally complaned of SOB where he felt he was gasping for air and episode of nausea accompanied by a 1/4 cup of NBNB vomiting. This is the first time he has had this episode. Endorses recent increased stress due to his mother being diagnosed with ?Stage 4 Cancer. Endorses medication noncompliance due to not having meds and not following with his PCP. Denies any recent sick contacts. Denies any fevers, chills, chest pain, diarrhea, constipation, dysuria. ER course was notable for: (1) (2) (3) Recent Travel: Travels to [place] regularly, once this past month PAST MEDICAL HISTORY: As Above PAST SURGICAL HISTORY: Lumbar Sx Social History: Smoking: Cigars regularly (atleast once a week) Alcohol: 6-7 beers daily, 3 shots/mixed drinks daily Drugs: Marijuana use Allergies No Known Allergies Allergy (Verified 08/14/19 15:40) HOME MEDICATIONS: Home Medications Medication Instructions Recorded Allopurinol [Zyloprim -] 100 mg PO DAILY 11/05/15 Colchicine [Colcrys] 0.6 mg PO DAILY 11/05/15 Gabapentin 100 mg PO DAILY 11/05/15 Omeprazole 20 mg PO DAILY 11/05/15 Losartan Potassium [Cozaar -] 100 mg PO DAILY tablet 11/06/15 Atenolol [Tenormin -] 25 mg PO BID 08/14/19 REVIEW OF SYSTEMS As per HPI PHYSICAL EXAMINATION Vital Signs - 24 hr 08/14/19 08/14/19 08/14/19 15:39 15:40 16:00 Temperature Pulse Rate 121 H Pulse Rate [#1] Pulse Rate [ 107 H Apical] Respiratory 28 H 26 H Rate Respiratory Rate [#1] Blood Pressure 185/125 H Blood Pressure [#1] Blood Pressure [Left Arm] Blood Pressure 127/70 [Right Arm] O2 Sat by Pulse 99 99 100 Oximetry (%) O2 Sat by Pulse Oximetry (%) [ #1] 08/14/19 08/14/19 08/14/19 16:20 16:40 17:10 Temperature Pulse Rate Pulse Rate [#1] Pulse Rate [ 100 H 89 100 H Apical] Respiratory 22 H 24 H 24 H Rate Respiratory Rate [#1] Blood Pressure Blood Pressure [#1] Blood Pressure [Left Arm] Blood Pressure 151/110 H 164/106 H 160/108 H [Right Arm] O2 Sat by Pulse 97 97 98 Oximetry (%) O2 Sat by Pulse Oximetry (%) [ #1] 08/14/19 08/14/19 18:05 19:13 Temperature 98 F Pulse Rate Pulse Rate [#1] 105 H Pulse Rate [ 108 H Apical] Respiratory 22 H Rate Respiratory 20 Rate [#1] Blood Pressure Blood Pressure 127/70 [#1] Blood Pressure 171/90 H [Left Arm] Blood Pressure [Right Arm] O2 Sat by Pulse 97 Oximetry (%) O2 Sat by Pulse 100 Oximetry (%) [ #1] GENERAL: A&Ox3, NAD HEAD: NCAT EYES: PERRL, EOMI EARS, NOSE, THROAT: Moist mucous membranes. NECK: Supple LUNGS: CTAB, No wheezes, no crackles. HEART: Regular rate and rhythm, normal S1 and S2 without murmur ABDOMEN: Obese, Soft, nontender, not distended, + bowel sounds, no guarding MUSCULOSKELETAL: No CVA tenderness. EXTREMITIES: No peripheral edema. NEUROLOGICAL: Cranial nerves II-XII intact. Normal speech. SKIN: Warm, dry Laboratory Results - last 24 hr 08/14/19 08/14/19 08/14/19 15:40 15:40 15:40 WBC 5.7 RBC 5.18 Hgb 17.2 H Hct 50.4 H MCV 97.3 H MCH 33.2 MCHC 34.1 RDW 16.2 H Plt Count 117 L D MPV 11.7 H D Absolute Neuts (auto) 3.6 Neutrophils % 63.2 D Lymphocytes % 25.2 D Monocytes % 10.6 H D Eosinophils % 0.3 D Basophils % 0.7 D Nucleated RBC % 0 Platelet Estimate Slt decrease Platelet Comment Giant platelets PT with INR 11.30 INR 0.96 PTT (Actin FS) 36.7 H D-Dimer Sodium Potassium Chloride Carbon Dioxide Anion Gap BUN Creatinine Est GFR (CKD-EPI)AfAm Est GFR (CKD-EPI)NonAf POC Glucometer Random Glucose Lactic Acid Calcium Magnesium Total Bilirubin AST ALT Alkaline Phosphatase Creatine Kinase 260 Creatine Kinase Index 0.8 CK-MB (CK-2) 2.1 Troponin I 0.06 H Total Protein Albumin TSH Free T4 Urine Color Urine Appearance Urine pH Ur Specific [place] Urine Protein Urine Glucose (UA) Urine Ketones Urine Blood Urine Nitrite Urine Bilirubin Urine Urobilinogen Ur Leukocyte Esterase Urine WBC (Auto) Urine RBC (Auto) Urine Casts (Auto) U Epithel Cells (Auto) Urine Bacteria (Auto) Opiates Screen Methadone Screen Barbiturate Screen Phencyclidine Screen Ur Amphetamines Screen MDMA (Ecstasy) Screen Benzodiazepines Screen Cocaine Screen U Marijuana (THC) Screen Alcohol, Quantitative Blood Type Antibody Screen 08/14/19 08/14/19 08/14/19 15:40 15:40 15:40 WBC RBC Hgb Hct MCV MCH MCHC RDW Plt Count MPV Absolute Neuts (auto) Neutrophils % Lymphocytes % Monocytes % Eosinophils % Basophils % Nucleated RBC % Platelet Estimate Platelet Comment PT with INR INR PTT (Actin FS) D-Dimer Sodium 141 Potassium 3.3 L Chloride 106 Carbon Dioxide 21 Anion Gap 14 BUN 10.6 Creatinine 1.4 H Est GFR (CKD-EPI)AfAm 69.34 Est GFR (CKD-EPI)NonAf 59.83 POC Glucometer Random Glucose 85 Lactic Acid 6.1 H* Calcium 8.9 Magnesium 1.5 L Total Bilirubin 0.6 AST 112 H ALT 69 H Alkaline Phosphatase 173 H Creatine Kinase Creatine Kinase Index CK-MB (CK-2) Troponin I Total Protein 8.7 H Albumin 3.5 TSH 0.45 D Free T4 0.77 Urine Color Urine Appearance Urine pH Ur Specific [place] Urine Protein Urine Glucose (UA) Urine Ketones Urine Blood Urine Nitrite Urine Bilirubin Urine Urobilinogen Ur Leukocyte Esterase Urine WBC (Auto) Urine RBC (Auto) Urine Casts (Auto) U Epithel Cells (Auto) Urine Bacteria (Auto) Opiates Screen Methadone Screen Barbiturate Screen Phencyclidine Screen Ur Amphetamines Screen MDMA (Ecstasy) Screen Benzodiazepines Screen Cocaine Screen U Marijuana (THC) Screen Alcohol, Quantitative 35.8 H Blood Type B POSITIVE Antibody Screen Negative 08/14/19 08/14/19 08/14/19 15:40 15:42 16:15 WBC RBC Hgb Hct MCV MCH MCHC RDW Plt Count MPV Absolute Neuts (auto) Neutrophils % Lymphocytes % Monocytes % Eosinophils % Basophils % Nucleated RBC % Platelet Estimate Platelet Comment PT with INR INR PTT (Actin FS) D-Dimer 1135 H Sodium Potassium Chloride Carbon Dioxide Anion Gap BUN Creatinine Est GFR (CKD-EPI)AfAm Est GFR (CKD-EPI)NonAf POC Glucometer 95 Random Glucose Lactic Acid Calcium Magnesium Total Bilirubin AST ALT Alkaline Phosphatase Creatine Kinase Creatine Kinase Index CK-MB (CK-2) Troponin I Total Protein Albumin TSH Free T4 Urine Color Urine Appearance Urine pH Ur Specific [place] Urine Protein Urine Glucose (UA) Urine Ketones Urine Blood Urine Nitrite Urine Bilirubin Urine Urobilinogen Ur Leukocyte Esterase Urine WBC (Auto) Urine RBC (Auto) Urine Casts (Auto) U Epithel Cells (Auto) Urine Bacteria (Auto) Opiates Screen Negative Methadone Screen Negative Barbiturate Screen Negative Phencyclidine Screen Negative Ur Amphetamines Screen Negative MDMA (Ecstasy) Screen Negative Benzodiazepines Screen Negative Cocaine Screen Negative U Marijuana (THC) Screen Positive A* Alcohol, Quantitative Blood Type Antibody Screen 08/14/19 08/14/19 08/14/19 16:15 18:33 18:33 WBC RBC Hgb Hct MCV MCH MCHC RDW Plt Count MPV Absolute Neuts (auto) Neutrophils % Lymphocytes % Monocytes % Eosinophils % Basophils % Nucleated RBC % Platelet Estimate Platelet Comment PT with INR INR PTT (Actin FS) D-Dimer Sodium Potassium Chloride Carbon Dioxide Anion Gap BUN Creatinine Est GFR (CKD-EPI)AfAm Est GFR (CKD-EPI)NonAf POC Glucometer Random Glucose Lactic Acid 2.0 Calcium Magnesium Total Bilirubin AST ALT Alkaline Phosphatase Creatine Kinase Creatine Kinase Index CK-MB (CK-2) Troponin I 0.06 H Total Protein Albumin TSH Free T4 Urine Color Yellow Urine Appearance Clear Urine pH 5.5 Ur Specific [place] 1.015 Urine Protein 3+ H Urine Glucose (UA) Negative Urine Ketones Negative Urine Blood 1+ H Urine Nitrite Negative Urine Bilirubin Negative Urine Urobilinogen 0.2 Ur Leukocyte Esterase Negative Urine WBC (Auto) 2 Urine RBC (Auto) 3 Urine Casts (Auto) 6 U Epithel Cells (Auto) 2.1 Urine Bacteria (Auto) 21.5 Opiates Screen Methadone Screen Barbiturate Screen Phencyclidine Screen Ur Amphetamines Screen MDMA (Ecstasy) Screen Benzodiazepines Screen Cocaine Screen U Marijuana (THC) Screen Alcohol, Quantitative Blood Type Antibody Screen ASSESSMENT/PLAN: 44 y/o M with PMHx of HTN (Noncompliant with medications or with PCP follow up) presents after "Not feeling like myself," found to be in hypertensive emergency and concerning for Hypertensive encephalopathy. #Hypertensive Emergency -HTN (185/125) + Cr 1.4, Trop 0.06, concerning for Hypertensive encephalopathy; Returned to baseline -CTA Negative for PE -F/U Metanephrines -CT Head Noncon negative -Will Check ECHO, DUPLEX B/L -Labetalol 10mg IV x2, Start Lisinorpil 20mg PO #Elevated Troponin I -Likely demand ischemia in the setting of Hypertensive Emergency -EKG: Sinus Tachycardia, LVH, VR 100, QTc 113, No ST Segment changed -Trop 0.06 x2; Trend trops and EKG -TSH + FT4 Normal -Check A1c -Tele #Acute EtOH Intoxication -EtOH level 35.8 -Currently not in active withdrawal, continue to monitor CIWA and will consider starting ativan protocol if CIWA > 8 #MEREDITH vs CKD -In the setting of Hypertensive Emergency with 3+ Protien in UA likely from long standing HTN -Trend Cr, Will Consider Renal/Bladder US if does not improve #Transaminitis -In the setting of EtOh intoxication -Check RUQ US to r/o Gall bladder pathology -Monitor LFTs #Lactic acidosis, Resolved -Unclear etiology, likely due to Dehydration + EtOh intoxication, No evidence of infectious source at this time -S/P 1L NS #Polycythemia + Thrombocytopenia -In the setting of Obesity + chronic tobacco use, Also consider hemoconcentration -Repeat CBC -Will consider Hematology consult if remains kwadwo #HypoKalemia -Repleted, Check K+ in AM #HypoMagnesium -Repleted, Check Mg+ in AM #FEN -No standing fluids -Replete Lytes PRN -Fat/Na controlled diet #PPx -DVT: Heparin Dispo: admit to tele Family Medical History Family Hx Cancer: Father, Sister Family Hx Diabetes: Mother, Father Family Hx Nuerologic Problems: Brother (CVA) Visit type - Emergency Visit Emergency Visit: Yes ED Registration Date: 08/14/19 Care time: The patient presented to the Emergency Department on the above date and was hospitalized for further evaluation of their emergent condition. - New Patient This patient is new to me today: Yes Date on this admission: 08/15/19 - Critical Care Critical Care patient: No ATTENDING PHYSICIAN STATEMENT I saw and evaluated the patient. I reviewed the resident's note and discussed the case with the resident. I agree with the resident's findings and plan as documented. SUBJECTIVE: OBJECTIVE: ASSESSMENT AND PLAN:
[2019-08-14] MEDS ORDERED: LISINOPRIL 20 MG TABLET (FP) ONE (21:33)
[2019-08-14] MEDS ORDERED: POTASSIUM CHLORIDE TABS 20 MEQ TABLET.ER (FP) PO ONE (21:38)
[2019-08-14] MEDS ORDERED: MAGNESIUM OXIDE 400 MG TABLET (FP) PO ONE (21:38)
[2019-08-14] MEDS: LISINOPRIL 20 MG TABLET (FP) PO SCH (23:15)
[2019-08-15] MEDS ORDERED: LABETALOL HCL 5 MG/1 ML (100MG/20 ML VIAL) IVPUSH ONE (00:27)
[2019-08-15] MEDS ORDERED: PNEUMOC 13-VAL CONJ-DIP CRM/PF 0.5 ML DISP.SYRIN IM ONE (00:31)
[2019-08-15] MEDS: HEPARIN NA (PORCINE) 5,000 UNITS/ML 1ML VIAL SQ SCH ×4 (00:56→21:31)
[2019-08-15 06:07] LABS: BASO % 0.4 % (0-2.0); EOS % 0.6 % (0-4.5); HEMATOCRIT 42.1 % (35.4-49); HEMOGLOBIN 14.3 GM/dL (11.7-16.9); LYMPH % 23.6 % (8-40); MCH 33.3 pg (25.7-33.7); MEAN PLT VOLUME 10.6 fl (7.5-11.1); MONO % 15.1 % (3.8-10.2); NEUT % 60.3 % (42.8-82.8); PLATELET COUNT 70 K/MM3 (134-434); RBC 4.29 M/mm3 (4.00-5.60); RDW 15.8 % (11.9-15.9)
[2019-08-15 06:50] LABS: ALBUMIN 2.6 g/dl (3.4-5.0); BILIRUBIN,TOTAL 0.7 mg/dL (0.2-1); BLOOD UREA NITROGEN 10.8 mg/dL (7-18); CREATININE 1.2 mg/dL (0.55-1.3); MAGNESIUM 2.3 mg/dL (1.8-2.4); PHOSPHOROUS 2.7 mg/dL (2.5-4.9); POTASSIUM 3.8 mmol/L (3.5-5.1); TOT PROT 6.3 g/dl (6.4-8.2)
[2019-08-15] MEDS: LISINOPRIL 20 MG TABLET (FP) PO SCH (09:02)
--- NOTE | 2019-08-15 10:10 | PN ---
Progress Note, Physician Chief Complaint: AWAKE ALERT EVENTS AND NOTES REVIEWED DENIES CHEST PAIN OR SOB - Current Medication List Current Medications: Active Medications Heparin Sodium (Porcine) (Heparin -) 5,000 unit SQ TID [facility] Last Admin: 08/15/19 06:14 Dose: 5,000 unit Influenza Virus Vaccine Quadrival (Flulaval Quad ) 60 mcg IM .ONCE ONE Stop: 08/15/19 12:01 Lisinopril (Prinivil) 20 mg PO DAILY [facility] Last Admin: 08/15/19 09:02 Dose: 20 mg Pneumococcal Polyvalent Vaccine (Pneumovax -) 0.5 ml IM .ONCE ONE Stop: 08/15/19 12:01 - Objective Vital Signs: Vital Signs Temperature 98.6 F 08/15/19 06:00 Pulse Rate 72 08/15/19 06:00 Respiratory Rate 18 08/15/19 06:00 Blood Pressure 159/100 08/15/19 06:00 O2 Sat by Pulse Oximetry (%) 97 08/15/19 01:09 Constitutional: Yes: No Distress Cardiovascular: Yes: Regular Rate and Rhythm Respiratory: Yes: Regular Gastrointestinal: Yes: WNL Genitourinary: Yes: WNL Musculoskeletal: Yes: WNL Extremities: Yes: WNL Edema: No ...Motor Strength: WNL Labs: CBC, BMP 08/15/19 05:25 08/15/19 05:25 INR, PTT INR 0.96 (0.83-1.09) 08/14/19 15:40 Problem List - Problems (1) Hypertensive emergency Code(s): I16.1 - HYPERTENSIVE EMERGENCY (2) Elevated troponin Code(s): R79.89 - OTHER SPECIFIED ABNORMAL FINDINGS OF BLOOD CHEMISTRY (3) HTN (hypertension) Code(s): I10 - ESSENTIAL (PRIMARY) HYPERTENSION Assessment/Plan OFF HIS MEDICATIONS BC OR RECENT TRAVEL RESTART TENORMIN 25MG BID LISINOPRIL 25MG DAILY DDIMER + CTA/DOPPLERS NEGATIVE CARDIO/RENAL EVAL
[2019-08-15] MEDS ORDERED: ATENOLOL 25 MG TABLET (FP) PO SCH (10:15)
[2019-08-15] MEDS: ATENOLOL 25 MG TABLET (FP) PO SCH ×2 (11:02→21:31)
[2019-08-15] MEDS ORDERED: PNEUMOCOCCAL 23 VACCINE 0.5 ML VIAL IM ONE (12:00)
[2019-08-15] MEDS ORDERED: FLU VACCINE QUAD 60 MCG/0.5 ML (MDV 19-20) IM ONE (12:00)
[2019-08-15 13:10] VITALS: BMI 31.9
--- NOTE | 2019-08-15 13:10 | CON.NEP ---
Consult Consult Specialty:: nephrology Reason for Consultation:: htn, proteinuria - History of Present Illness Chief Complaint: sweating History of Present Illness: 44 year old man with history of htn for "years" who pesented yesterday to ER because he felt like he was not in control and off balance. he didnt know if he was having a stroke or a heart attack . Had no pain just felt different and had profuse diaphoresis. He has not been taking BP meds because he has been going back and forth between [place] and [place]. His mother is sick. He has never felt like this before. Says his PMD told him his testosterone level was very high. - History Source History Provided By: Patient, Medical Record Limitations to Obtaining History: No Limitations - Past Medical History Cardio/Vascular: Yes: HTN - Past Surgical History Past Surgical History: Yes: None - Alcohol/Substance Use Hx Alcohol Use: Yes (social) - Smoking History Smoking history: Never smoked Have you smoked in the past 12 months: No Aproximately how many cigarettes per day: 0 Home Medications - Allergies Allergies/Adverse Reactions: Allergies Allergy/AdvReac Type Severity Reaction Status Date / Time No Known Allergies Allergy Verified 08/14/19 15:40 - Home Medications Home Medications: Ambulatory Orders Allopurinol [Zyloprim -] 100 mg PO DAILY 11/05/15 Colchicine [Colcrys] 0.6 mg PO DAILY 11/05/15 Gabapentin 100 mg PO DAILY 11/05/15 Omeprazole 20 mg PO DAILY 11/05/15 Losartan Potassium [Cozaar -] 100 mg PO DAILY tablet 11/06/15 Atenolol [Tenormin -] 25 mg PO BID 08/14/19 Review of Systems - Review of Systems Constitutional: reports: Diaphoresis Eyes: reports: No Symptoms HENT: reports: No Symptoms Neck: reports: No Symptoms Cardiovascular: reports: No Symptoms. denies: Chest Pain, Edema Respiratory: reports: No Symptoms Gastrointestinal: reports: No Symptoms Genitourinary: reports: No Symptoms Breasts: reports: No Symptoms Reported Musculoskeletal: reports: No Symptoms Integumentary: reports: No Symptoms Neurological: reports: Dizziness Endocrine: reports: No Symptoms Hematology/Lymphatic: reports: No Symptoms Psychiatric: reports: No Symptoms Nephrology Consult - Height Height: 5 ft 11 in - Weight Weight: 229 lb - BMI Body Mass Index (BMI): 31.9 - Lab Results CBC,BMP: CBC, BMP 08/15/19 05:25 08/15/19 05:25 Anion Gap: Anion Gap Anion Gap 6 MMOL/L (8-16) L 08/15/19 05:25 - Imaging Chest X-ray: Report Reviewed Cat Scan: Report Reviewed Ultrasound: Report Reviewed (renal cyst) - Physical Examination Vital Signs: Vital Signs Temperature 98.1 F 08/15/19 09:00 Pulse Rate 84 08/15/19 10:10 Respiratory Rate 18 08/15/19 10:10 Blood Pressure 141/106 H 08/15/19 10:10 O2 Sat by Pulse Oximetry (%) 97 08/15/19 10:00 Constitutional: Yes: Well Nourished, No Distress Eyes: Yes: Conjunctiva Clear HENT: Yes: Atraumatic, Normocephalic Neck: Yes: Supple, Trachea Midline Cardiovascular: Yes: Regular Rate and Rhythm Respiratory: Yes: Regular, CTA Bilaterally Gastrointestinal: Yes: Normal Bowel Sounds Musculoskeletal: Yes: WNL Extremities: Yes: WNL Edema: No Peripheral Pulses WNL: Yes Wound/Incision: Yes: Clean/Dry Neurological: Yes: Alert, Oriented Psychiatric: Yes: Alert, Oriented Assessment/Plan IMPRESSION CKD HTN uncontrolled perhaps from noncompliance thrombocytopenia elevated lfts suggestive of alcohol exposure hypoalbuminemia hematuria and proteinuria hepatosplenomegaly on previous ct PLAN needs a work up ask heme to eval- he seems to be chronically thrpmbocytopenic- would put on ciwa protocol continue antihypertebnsives protein to creat ?kidney biopsy given proteinuria and hematuria testosterone and cortisol level MV
--- NOTE | 2019-08-15 13:35 | EKG ---
Test Reason : Blood Pressure : / mmHG Vent. Rate : 113 BPM Atrial Rate : 113 BPM P-R Int : 140 ms QRS Dur : 088 ms QT Int : 358 ms P-R-T Axes : 065 002 060 degrees QTc Int : 491 ms POOR DATA QUALITY, INTERPRETATION MAY BE ADVERSELY AFFECTED SINUS TACHYCARDIA WITH PREMATURE SUPRAVENTRICULAR COMPLEXES POSSIBLE LEFT ATRIAL ENLARGEMENT BORDERLINE ECG WHEN COMPARED WITH ECG OF 05-NOV-2015 14:34, PREMATURE SUPRAVENTRICULAR COMPLEXES ARE NOW PRESENT Confirmed by MD ZACH, NAHID ([id number]) on 08/15/2019 1:35:33 PM Referred By: Confirmed By:NAHID SERRANO MD
--- NOTE | 2019-08-15 13:49 | CON.CARD ---
Consult Consult Specialty:: Cardiology Referred by:: Dr. Gonzalez Reason for Consultation:: Hypertension emergency - History of Present Illness Chief Complaint: Severe hypertension History of Present Illness: 44 year-old man with a PMHx of HTN (noncompliant with medications admitted 08/14 with hypertension emergency. The patient presented to ED on 08/14/19 after "not feeling like myself." Patient woke in his usual state of health on the day of admission. His noticed he "wasnt speaking like his usual self." He then walked outside and felt extremely hot with profuse sweating. He also had SOB when he felt he was gasping for air and episode of nausea accompanied by a 1/4 cup of NBNB vomiting. He was found to have severe hypertension and mild tachycardia. CT head 08/14/[address] chest 08/14/19 ruled out PE. LE duplex negative for DT. CXR normal. ECG showed sinus tachycardia. His BP and heart rate improved since admission. He has been asymptomatic without chest pain, SOB or palpitation. - History Source History Provided By: Patient, Medical Record Limitations to Obtaining History: No Limitations - Past Medical History Cardio/Vascular: Yes: HTN - Past Surgical History Past Surgical History: Yes: None - Alcohol/Substance Use Hx Alcohol Use: Yes (social) - Smoking History Smoking history: Never smoked Have you smoked in the past 12 months: No Aproximately how many cigarettes per day: 0 Home Medications - Allergies Allergies/Adverse Reactions: Allergies Allergy/AdvReac Type Severity Reaction Status Date / Time No Known Allergies Allergy Verified 08/14/19 15:40 - Home Medications Home Medications: Ambulatory Orders Allopurinol [Zyloprim -] 100 mg PO DAILY 11/05/15 Colchicine [Colcrys] 0.6 mg PO DAILY 11/05/15 Gabapentin 100 mg PO DAILY 11/05/15 Omeprazole 20 mg PO DAILY 11/05/15 Losartan Potassium [Cozaar -] 100 mg PO DAILY tablet 11/06/15 Atenolol [Tenormin -] 25 mg PO BID 08/14/19 Review of Systems - Review of Systems Constitutional: reports: No Symptoms Eyes: reports: No Symptoms HENT: reports: No Symptoms Neck: reports: No Symptoms Cardiovascular: reports: No Symptoms Respiratory: reports: No Symptoms Gastrointestinal: reports: No Symptoms Genitourinary: reports: No Symptoms Breasts: reports: No Symptoms Reported Musculoskeletal: reports: No Symptoms Integumentary: reports: No Symptoms Neurological: reports: Change in Speech Endocrine: reports: No Symptoms Hematology/Lymphatic: reports: No Symptoms Psychiatric: reports: No Symptoms Vital Signs: Vital Signs Temperature 98.1 F 08/15/19 09:00 Pulse Rate 84 08/15/19 10:10 Respiratory Rate 18 08/15/19 10:10 Blood Pressure 141/106 H 08/15/19 10:10 O2 Sat by Pulse Oximetry (%) 97 08/15/19 10:00 General: Well developed. Well nourished. No acute distress. Head: Normocephalic. Atraumatic, Eyes: PERRLA, EOMI. Sclerae anicteric. Conjunctivae clear. Neck: Supple. No JVD. No bruits. Heart: Normal S1, S2: Regular rhythm and rate. No murmur. No gallop or rub. Lungs: Symmetrical air entry. Clear to auscultation. No crackles. No wheezing or rhonchi. Abdomen: Soft. Bowel sound positive. Non tender. No masses. Extremities: No edema. No clubbing or cyanosis. PD 2+, equal bilaterally. Neuro: Intact, no focal findings. AAO X3. - Other Data Labs, Other Data: CBC, BMP 08/15/19 05:25 08/15/19 05:25 INR, PTT INR 0.96 (0.83-1.09) 08/14/19 15:40 Troponin, BNP 08/14/19 08/14/19 08/15/19 15:40 18:33 05:25 Troponin I 0.06 H 0.06 H 0.10 H 08/15/19 05:25 Troponin I 0.09 H Troponin, BNP 08/14/19 08/14/19 08/15/19 15:40 18:33 05:25 Troponin I 0.06 H 0.06 H 0.10 H 08/15/19 05:25 Troponin I 0.09 H Assessment/Plan 44 year-old man with a PMHx of HTN (noncompliant with medications admitted 08/[address] head 08/14/[address] chest 08/14/19 ruled out PE. LE duplex negative for DT. CXR normal. ECG showed sinus tachycardia. His BP and heart rate improved since admission. He has been asymptomatic without chest pain, SOB or palpitation. Hypertension emergency: BP and HR control are improving. Increase atenolol to 100 mg daily. Change Lisinopril to Valsartan 160 mg daily. Would add amlodipine 5 mg daily if BP remains elevated tomorrow. We will follow the patient with you.
[2019-08-15] MEDS: VALSARTAN 160 MG TABLET (UD) PO SCH (16:34)
[2019-08-16] MEDS: HEPARIN NA (PORCINE) 5,000 UNITS/ML 1ML VIAL SQ SCH (05:27)
[2019-08-16 06:20] LABS: HEMATOCRIT 41.9 % (35.4-49); HEMOGLOBIN 14.1 GM/dL (11.7-16.9); MCH 33.3 pg (25.7-33.7); MCHC 33.7 g/dl (32.0-35.9); MEAN PLT VOLUME 11.1 fl (7.5-11.1); PLATELET COUNT 46 K/MM3 (134-434); RBC 4.23 M/mm3 (4.00-5.60); RDW 15.9 % (11.9-15.9); WHITE BLOOD COUNT 3.3 K/mm3 (4.0-10.0)
[2019-08-16 06:51] LABS: ALBUMIN 2.5 g/dl (3.4-5.0); BILIRUBIN,TOTAL 0.6 mg/dL (0.2-1); BLOOD UREA NITROGEN 10.5 mg/dL (7-18); CALCIUM 8.1 mg/dL (8.5-10.1); CREATININE 1.3 mg/dL (0.55-1.3); MAGNESIUM 1.8 mg/dL (1.8-2.4); POTASSIUM 3.6 mmol/L (3.5-5.1)
[2019-08-16] MEDS: VALSARTAN 160 MG TABLET (UD) PO SCH (09:50)
[2019-08-16 09:53] VITALS: PULSE 68; TEMP 98.1
[2019-08-16] MEDS ORDERED: ATENOLOL 50 MG TABLET (FP) PO SCH (10:00)
--- NOTE | 2019-08-16 10:26 | DS ---
Physical Examination Vital Signs: Vital Signs Temperature 98.1 F 08/16/19 09:53 Pulse Rate 68 08/16/19 09:53 Respiratory Rate 20 08/16/19 06:00 Blood Pressure 150/101 H 08/16/19 09:53 O2 Sat by Pulse Oximetry (%) 97 08/15/19 20:26 Constitutional: Yes: No Distress Eyes: Yes: WNL HENT: Yes: WNL Neck: Yes: WNL Cardiovascular: Yes: WNL Respiratory: Yes: WNL Gastrointestinal: Yes: WNL Renal/: Yes: WNL Musculoskeletal: Yes: WNL Extremities: Yes: WNL Edema: No Peripheral Pulses WNL: Yes Wound/Incision: Yes: Clean/Dry Neurological: Yes: WNL ...Motor Strength: WNL Psychiatric: Yes: WNL Labs: CBC, BMP 08/16/19 05:15 08/16/19 05:15 Discharge Summary Problems reviewed: Yes Reason For Visit: SHORTNESS OF BREATH, ELEVATED TROPONIN LEVEL, Current Active Problems Elevated troponin (Acute) Hypertensive emergency (Acute) Lactic acidosis (Acute) Shortness of breath (Acute) Procedures: Principal: EKG AND LABS DONE, MONITORED ON TELEMETRY Hospital Course: ADMITTED FOR HTN, NON-COMPLIANT OFF HIS MEDS FOR SEVERAL DAYS, HERE IN ER HAD WORKUP DONE FOR PE NEGATIVE, TREATED AND MONITORED ON TELEMETRY. NO CHEST PAIN OR SOB, DENIES ANY DIZZINESS, Plan of Treatment: LOW SALT DIET, TOP ALL JUNK FOOD, EAT HEALTHY. DIETARY CONSULT AND F/U WITH YOUR PRIMARY DOCTOR. TAKE YOUR MEDICATIONS THELMA. Condition: Improved - Instructions Referrals: Angelito Farrell MD [Primary Care Provider] - Disposition: HOME - Home Medications Comprehensive Discharge Medication List: Ambulatory Orders Allopurinol [Zyloprim -] 100 mg PO DAILY 11/05/15 Colchicine [Colcrys] 0.6 mg PO DAILY 11/05/15 Gabapentin 100 mg PO DAILY 11/05/15 Omeprazole 20 mg PO DAILY 11/05/15 Losartan Potassium [Cozaar -] 100 mg PO DAILY tablet 11/06/15 Atenolol [Tenormin -] 25 mg PO BID 08/14/19 Prescription Drug Monitoring Program (I-STOP) results: I-STOP not reviewed
[2019-08-16] MEDS: LISINOPRIL 20 MG TABLET (FP) PO SCH (10:58)
[2019-08-16] MEDS ORDERED: amLODIPine BESYLATE 5 MG TABLET (FP) PO SCH (11:00)
[2019-08-16] MEDS ORDERED: PNEUMOC 13-VAL CONJ-DIP CRM/PF 0.5 ML DISP.SYRIN IM ONE (11:35)
--- NOTE | 2019-08-16 11:37 | PN ---
Progress Note (short form) - Note Progress Note: HISTORY OF THROMBOCYTOPENIA, PATIENT AWARE PLATLETS ARE LOW 46 REPORTS THIS IS BASELINE SEES A SPECIALIST HEMATOLOGY OUTPATIENT. I INSTRUCED HIM TO SEE HIS HEME SPECIALIST FOR F/U PNEUMO PREVNAR 13 AND INFLUENZA VACCINE GIVEN TODAY FOR SPLEEN D/O Problem List - Problems (1) Hypertensive emergency Code(s): I16.1 - HYPERTENSIVE EMERGENCY (2) Elevated troponin Code(s): R79.89 - OTHER SPECIFIED ABNORMAL FINDINGS OF BLOOD CHEMISTRY (3) HTN (hypertension) Code(s): I10 - ESSENTIAL (PRIMARY) HYPERTENSION
[2019-08-16] MEDS ORDERED: PNEUMOCOCCAL 23 VACCINE 0.5 ML VIAL IM ONE (13:00)
[2019-08-16] MEDS ORDERED: FLU VACCINE QUAD 60 MCG/0.5 ML (MDV 19-20) IM ONE (14:00)
[2019-08-16 14:05] VITALS: BP 145/101
--- NOTE | 2019-08-19 17:43 | EKG ---
Test Reason : Blood Pressure : / mmHG Vent. Rate : 100 BPM Atrial Rate : 100 BPM P-R Int : 140 ms QRS Dur : 094 ms QT Int : 378 ms P-R-T Axes : 061 -09 065 degrees QTc Int : 487 ms NORMAL SINUS RHYTHM MODERATE VOLTAGE CRITERIA FOR LVH, MAY BE NORMAL VARIANT PROLONGED QT ABNORMAL ECG WHEN COMPARED WITH ECG OF 14-AUG-2019 15:50, PREMATURE SUPRAVENTRICULAR COMPLEXES ARE NO LONGER PRESENT Confirmed by IVETT LAW, SIERRA ([id number] on 08/19/2019 5:42:59 PM Referred By: Confirmed By:SIERRA ROOT MD
[2019-08-21 10:09] LABS: NORMETANEPHRINE MG/L 582 ug/L (Undefined)
== END 2019-08-16 14:33 | disposition home or self-care (01) | DRG 199 ==
LOC: JER 15:34 → JERBED 20:09 → OBSVTOIN 21:15 → J4S 08-15 00:20
PROVIDERS: ADMIT Internal Medicine; ATTEND Family Medicine
DX: I16.1 Hypertensive emergency (principal); I67.4 Hypertensive encephalopathy; R07.89 Other chest pain; I10 Essential (primary) hypertension; E87.2 Acidosis; R00.0 Tachycardia, unspecified; E86.0 Dehydration; E87.6 Hypokalemia; E83.42 Hypomagnesemia; I12.9 Hypertensive chronic kidney disease with stage 1 through stage 4 chronic kidney disease, or unspecified chronic kidney disease; N18.9 Chronic kidney disease, unspecified; I24.8 Other forms of acute ischemic heart disease; E16.2 Hypoglycemia, unspecified; F10.129 Alcohol abuse with intoxication, unspecified; Y90.1 Blood alcohol level of 20-39 mg/100 ml; D69.6 Thrombocytopenia, unspecified; D75.1 Secondary polycythemia; R79.89 Other specified abnormal findings of blood chemistry; R16.2 Hepatomegaly with splenomegaly, not elsewhere classified; E88.09 Other disorders of plasma-protein metabolism, not elsewhere classified; N28.1 Cyst of kidney, acquired; R31.9 Hematuria, unspecified; N17.9 Acute kidney failure, unspecified; E66.9 Obesity, unspecified; Z68.32 Body mass index [BMI] 32.0-32.9, adult; Z91.14 Patient's other noncompliance with medication regimen
CPT/HCPCS: 36415; 70450-TC; 71045-TC-FY; 71275-TC; 76705-TC; 76775-TC; 80053; 80061; 80307; 81003; 82533; 82550; 82553; 82962; 83036; 83605; 83721; 83735; 83835; 84100; 84439; 84443; 84484; 85025; 85027; 85379; 85610; 85730; 86038; 86317; 86704; 86803; 86850; 86900; 86901; 87340; 90732; 93005; 93010; 93970-TC; 99285-25; G0008; G0009; G0378; J1644; J7030; Q2036; Q9967

== ENCOUNTER 2020-08-05 04:13 | Day surgery (SDC) | payer OTHER ==
[2020-08-03 15:59] VITALS: BMI 27.1
[2020-08-05 07:20] LABS: BASO % 0.8 % (0-2.0); EOS % 2.9 % (0-4.5); HEMATOCRIT 38.5 % (35.4-49); HEMOGLOBIN 13.1 GM/dL (11.7-16.9); LYMPH % 41.8 % (8-40); MEAN CELL VOLUME 100.1 fl (80-96); MEAN PLT VOLUME 9.9 fl (7.5-11.1); MONO % 12.1 % (3.8-10.2); NEUT % 42.4 % (42.8-82.8); PLATELET COUNT 62 K/MM3 (134-434); RBC 3.85 M/mm3 (4.00-5.60); RDW 13.6 % (11.9-15.9); WHITE BLOOD COUNT 3.3 K/mm3 (4.0-10.0)
[2020-08-05 07:26] LABS: INR 1.02 (0.83-1.09); PROTHROMBIN TIME (PATIENT) 12.5 SEC (9.7-13.0)
[2020-08-05 07:42] LABS: POTASSIUM 4.5 mmol/L (3.5-5.1)
[2020-08-05 07:44] LABS: BLOOD UREA NITROGEN 17.6 mg/dL (7-18); CALCIUM 7.8 mg/dL (8.5-10.1)
[2020-08-05 07:47] LABS: CREATININE 1.5 mg/dL (0.55-1.3)
[2020-08-05 07:49] LABS: BILIRUBIN,TOTAL 0.4 mg/dL (0.2-1); TOT PROT 6.5 g/dl (6.4-8.2)
[2020-08-05] MEDS ORDERED: DEXAMETHASONE SOD PHOSPHATE 4 MG/1 ML VIAL ONE (09:34)
[2020-08-05] MEDS ORDERED: ONDANSETRON 4 MG/2 ML VIAL ONE (09:34)
[2020-08-05] MEDS ORDERED: ceFAZolin SODIUM 1 GM VIAL ONE ×3 (09:34→09:59)
[2020-08-05] MEDS ORDERED: MIDAZOLAM HCL 2 MG/2 ML SINGLE DOSE VIAL ONE (09:35)
[2020-08-05] MEDS ORDERED: PROPOFOL 20 ML ONE ×2 (09:35→09:57)
[2020-08-05] MEDS ORDERED: ONDANSETRON 4 MG/2 ML VIAL IVPUSH PRN (09:39)
[2020-08-05] MEDS ORDERED: oxyCODONE HCL 5 MG TABLET PO PRN (09:39)
[2020-08-05] MEDS ORDERED: LIDOCAINE HCL 1%, 10 MG/ML (20ML VIAL) ONE (09:44)
[2020-08-05] MEDS ORDERED: LACTATED RINGERS SOLUTION 1,000 ML IV SCH (09:45)
[2020-08-05] MEDS ORDERED: ceFAZolin 2 GRAM PREMIX BAG IVPB ONE (10:00)
[2020-08-05] MEDS ORDERED: BUPIVACAINE HCL/PF 0.5% (5MG/ML) 10 ML VIAL IJ ONE ×2 (10:33)
[2020-08-05] MEDS ORDERED: LIDOCAINE HCL 1% PRESERVATIVE FREE - 30ML VIAL IJ ONE ×2 (10:33)
[2020-08-05] MEDS ORDERED: ACETAMINOPHEN 1000 MG/100 ML VIAL (NON FORMULARY) IVPB ONE (11:11)
[2020-08-05 12:46] VITALS: TEMP 96.9
[2020-08-05 15:54] VITALS: BP 127/89; PULSE 63
== END 2020-08-05 13:30 | disposition home or self-care (01) ==
LOC: JASU-SURG 04:13
PROVIDERS: ATTEND Surgery
PROC: 0WQF0ZZ Repair Abdominal Wall, Open Approach (ICD-10-PCS; principal; 2020-08-05 09:00)
DX: K42.0 Umbilical hernia with obstruction, without gangrene (principal)
CPT/HCPCS: 36415; 80053; 85025; 85610; 86850; 86900; 86901; 93005; 93010; 94760; J0131